=== PATIENT | male | born 1985 | race Caucasian/White ===

== ENCOUNTER 2018-01-25 23:44 | Inpatient (IN) | payer SELFPAY ==
[~2018-01-25] VITALS: Ht 175.3 cm; Wt 95.7 kg
[2018-01-25 23:47] VITALS: BP 182/80; PULSE 100; RESP 18; TEMP 98.7; O2SAT 94
[2018-01-26] VITALS (22 sets, daily range): BP systolic 109–210; BP diastolic 56–102; PULSE 58–115; RESP 13–24; TEMP 98–98.7; O2SAT 93–100
[2018-01-26 00:05] LABS: AUTOMATED NEUTROPHIL # 4.4 TH/MM3 (1.8-7.7); BASOPHIL # 0.1 TH/MM3 (0-0.2); BASOPHIL % 0.7 % (0.0-2.0); EOSINOPHIL # 0.7 TH/MM3 (0-0.4); EOSINOPHIL % 7.7 % (0.0-4.0); HEMATOCRIT 40.4 % (39.0-51.0); HEMOGLOBIN 13.6 GM/DL (13.0-17.0); LYMPH % 37.8 % (9.0-44.0); LYMPHOCYTE # 3.4 TH/MM3 (1.0-4.8); MEAN CELL VOLUME 94.2 FL (80.0-100.0); MEAN CORPUSCULAR HEMOGLOBIN 31.8 PG (27.0-34.0); MEAN CORPUSCULAR HGB CONC 33.8 % (32.0-36.0); MEAN PLATELET VOLUME 7.7 FL (7.0-11.0); MONOCYTE # 0.5 TH/MM3 (0-0.9); NEUT % 47.8 % (16.0-70.0); PLATELET COUNT 265 TH/MM3 (150-450); RED BLOOD COUNT 4.29 MIL/MM3 (4.50-5.90); RED CELL DISTRIBUTION WIDTH 14.3 % (11.6-17.2); WHITE BLOOD COUNT 9.1 TH/MM3 (4.0-11.0)
[2018-01-26] MEDS ORDERED: PROMETHAZINE INJ 25 MG/ML VIAL IM ONE (00:15)
[2018-01-26 00:29] LABS: ALBUMIN 3.7 GM/DL (3.4-5.0); ALT (GPT) 29 U/L (12-78); AST (GOT) 19 U/L (15-37); BICARBONATE 22.9 MEQ/L (21.0-32.0); BLOOD UREA NITROGEN 12 MG/DL (7-18); CALCIUM 7.8 MG/DL (8.5-10.1); CHLORIDE 109 MEQ/L (98-107); CREATININE 1.04 MG/DL (0.60-1.30); GLOMERULAR FILTRATION RATE 82 ML/MIN (>89); GLUCOSE,RANDOM 107 MG/DL (74-106); SODIUM (NA) 142 MEQ/L (136-145)
[2018-01-26 00:32] LABS: ALKALINE PHOSPHATASE 80 U/L (45-117); TOTAL BILIRUBIN ADULT 0.2 MG/DL (0.2-1.0); TOTAL PROTEIN 6.8 GM/DL (6.4-8.2)
[2018-01-26] MEDS ORDERED: LORazepam 2 MG/ML VIAL IV PUSH ONE (01:00)
--- NOTE | 2018-01-26 01:10 | RADRPT ---
EXAM DATE: 01/26/2018 12:50 AM EDT AGE/SEX: 32 years / Male INDICATIONS: Found on ground with laceration over right eye. CLINICAL DATA: This is the patient's initial encounter. Patient reports that signs and symptoms have been present for 1 day and indicates a pain score of Nonresponsive. MEDICAL/SURGICAL HISTORY: Non-responsive. Non-responsive. RADIATION DOSE: 56.35 CTDI (mGy) COMPARISON: No prior exams available for comparison. TECHNIQUE: CT of the head without contrast. Using automated exposure control and adjustment of the mA and/or kV according to patient size, radiation dose was kept as low as reasonably achievable to ob tain optimal diagnostic quality images. DICOM format image data is available electronically for revi ew and comparison. FINDINGS: Cerebrum: There is subarachnoid hemorrhage seen at the right frontal lobe. There is a small area kyle suring 1 cm which may be a more focal area of subarachnoid hemorrhage versus actual intracranial hemo rrhagic contusion in the right frontal lobe. The ventricles are normal for age. No evidence of midli ne shift, mass lesion, or acute infarction. Posterior Fossa: The cerebellum and brainstem are intac t. The 4th ventricle is midline. The cerebellopontine angle is unremarkable. Extracranial: Nasal bone fractures are present. There is fracturing of the lamina papyracea on the r ight. There is associated soft tissue swelling in the right periorbital region. There is air in the s oft tissues inferior to the left petrous temporal bone raising possibility of fracture in this region . The fracture is not clearly seen. There is fluid in the left middle ear. There is fluid seen throug hout the paranasal sinuses. The patient is to CT of the facial bones to follow. CONCLUSION: 1. Subarachnoid hemorrhage over the right frontal lobe. There may be a small hemorrhagic contusion m easuring 1 cm in the right frontal lobe. 2. Nasal bone fracture and right lamina papyracea fracture. The patient is to have a CT of the facia l bones. 3. Air seen inferior to the left petrous temporal bone raising possibility of fracture of the left p etrous temporal bone although fracture line is not clearly seen. Electronically signed by: Brent Logan MD 01/26/2018 1:09 AM EDT
[2018-01-26] MEDS ORDERED: HALOPERIDOL LACTATE 5 MG/ML AMP IM ONE (01:15)
--- NOTE | 2018-01-26 01:18 | RADRPT ---
EXAM DATE: 01/26/2018 1:10 AM EDT AGE/SEX: 32 years / Male INDICATIONS: Found on ground. Laceration over right eye. CLINICAL DATA: This is the patient's initial encounter. Patient reports that signs and symptoms have been present for 1 day and indicates a pain score of Nonresponsive. MEDICAL/SURGICAL HISTORY: Non-responsive. Non-responsive. RADIATION DOSE: 23.51 CTDI (mGy) COMPARISON: No prior exams available for comparison. TECHNIQUE: Contiguous images in the axial and coronal planes were obtained using helical multirow de tector technique. Using automated exposure control and adjustment of the mA and/or kV according to p atient size, radiation dose was kept as low as reasonably achievable to obtain optimal diagnostic jean-paul lity images. DICOM format image data is available electronically for review and comparison. FINDINGS: Orbits: There is fracturing of the right lamina papyracea. There is fracturing of the right orbital roof and inferior aspect of the right frontal sinus. There is right orbital emphysema. The left orbit is intact. Nasal Bone: There are multiple nasal bone fractures. Zygomatic Arches: Symmetric without evidence of fracture. Sinuses: There is fracturing through the right frontal sinus. There is fluid/hemorrhage seen in the right frontal, bilateral ethmoid, bilateral sphenoid and to a lesser degree bilateral maxillary sinus es. Nasal Cavity: The nasal septum is deviated to the right. The lacrimal ducts are intact. Soft Tissues: There is right periorbital soft tissue swelling and emphysema. There is soft tissue sw elling at the nose. There is emphysema seen inferior to the left petrous temporal bone and extending into the parapharyngeal space. There is fracturing of the inferior aspect of the petrous temporal bon e seen on the coronal images. There is fluid in the left middle ear. Intracranial: No intracranial air seen. Cribriform Plate: Grossly intact. CONCLUSION: 1. Right orbital fractures involving the superior and medial whittington. 2. Fracturing of the inferior aspect of the left petrous temporal bone with air extending into the l eft parapharyngeal space. 3. Fracturing through the right frontal sinus. 4. Nasal bone fractures. Electronically signed by: Brent Logan MD 01/26/2018 1:17 AM EDT
--- NOTE | 2018-01-26 01:38 | RADRPT ---
EXAM DATE: 01/26/2018 1:09 AM EDT AGE/SEX: 32 years / Male INDICATIONS: Found on ground with facial abrasions and lacerations. CLINICAL DATA: This is the patient's initial encounter. Patient reports that signs and symptoms have been present for 1 day and indicates a pain score of Nonresponsive. MEDICAL/SURGICAL HISTORY: Non-responsive. Non-responsive. RADIATION DOSE: 22.75 CTDI (mGy) ; Patient motion COMPARISON: No prior exams available for comparison. TECHNIQUE: Contiguous axial images were obtained using helical multirow detector technique. The vol umetric data was post-processed with multiplanar reconstruction in oblique axial, sagittal, and coron al planes. Using automated exposure control and adjustment of the mA and/or kV according to patient s ize, radiation dose was kept as low as reasonably achievable to obtain optimal diagnostic quality marko ges. DICOM format image data is available electronically for review and comparison. FINDINGS: Vertebrae: Normal vertebral body height. Alignment: Normal. No subluxation. Again noted is the emphysema in the left parapharyngeal space. Please see the CT of the facial report . C2-3: The bony spinal canal is normal in size. No evidence of disc bulge or herniation. The neural foramina are bilaterally patent. C3-4: The bony spinal canal is normal in size. No evidence of disc bulge or herniation. The neural foramina are bilaterally patent. C4-5: The bony spinal canal is normal in size. No evidence of disc bulge or herniation. The neural foramina are bilaterally patent. C5-6: The bony spinal canal is normal in size. No evidence of disc bulge or herniation. The neural foramina are bilaterally patent. C6-7: The bony spinal canal is normal in size. No evidence of disc bulge or herniation. The neural foramina are bilaterally patent. C7-T1: The bony spinal canal is normal in size. No evidence of disc bulge or herniation. The neura l foramina are bilaterally patent. CONCLUSION: Negative cervical spine CT examination. Electronically signed by: Brent Logan MD 01/26/2018 1:36 AM EDT
[2018-01-26] MEDS ORDERED: ETOMIDATE 40 MG/20 ML VIAL ONE (01:40)
[2018-01-26] MEDS ORDERED: PROPOFOL 1000 MG/100 ML INJ 100 ML IV PRN (01:45)
[2018-01-26] MEDS ORDERED: ETOMIDATE 20 MG/10 ML VIAL IVP ONE (01:45)
[2018-01-26] MEDS ORDERED: SUCCINYLCHOLINE CHLORIDE 200 MG/10 ML VIAL IV PUSH ONE (01:45)
[2018-01-26] MEDS ORDERED: fentaNYL DRIP 250 ML IV PRN (02:00)
[2018-01-26] MEDS ORDERED: HYDROmorphone HCL PF 2 MG/ML VIAL IVS ONE (02:00)
--- NOTE | 2018-01-26 02:32 | RADRPT ---
EXAM DATE: 01/26/2018 2:16 AM EDT AGE/SEX: 32 years / Male INDICATIONS: Intubation on a unresponsive patient. CLINICAL DATA: This is the patient's initial encounter. Patient reports that signs and symptoms have been present for 1 day and indicates a pain score of Nonresponsive. MEDICAL/SURGICAL HISTORY: Non-responsive. Non-responsive. COMPARISON: No prior exams available for comparison. FINDINGS: The ET tube tip is 5 cm from the skyler in good position. The NG tube tip is in the stomach. The hear t size is normal. There is increased density at the left base in the retrocardiac area. The right soumya g is grossly clear. CONCLUSION: ET tube and NG tube in good position. Mild left base atelectasis or consolidation. Electronically signed by: Brent Logan MD 01/26/2018 2:31 AM EDT
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
[2018-01-26] MEDS ORDERED: SODIUM CHLOR 0.9% 1000 ML INJ 1,000 ML IV SCH (07:00)
--- NOTE | 2018-01-26 07:29 | RADRPT ---
EXAM DATE: 01/26/2018 7:13 AM EDT AGE/SEX: 32 years / Male INDICATIONS: Follow up head injury, pupil change. CLINICAL DATA: This is the patient's subsequent encounter. Patient reports that signs and symptoms h ave been present for 2 days and indicates a pain score of Nonresponsive. MEDICAL/SURGICAL HISTORY: Non-responsive. Non-responsive. RADIATION DOSE: 56.35 CTDI (mGy) COMPARISON: [facility] [place], CT FACIAL BONES W/O CONTRAST, 01/26/2018. . TECHNIQUE: CT of the head without contrast. Using automated exposure control and adjustment of the mA and/or kV according to patient size, radiation dose was kept as low as reasonably achievable to ob tain optimal diagnostic quality images. DICOM format image data is available electronically for revi ew and comparison. FINDINGS: Redemonstration of subarachnoid hemorrhage overlying the cortices and right frontal mid convexities. There is also redemonstration of a focal small region of intraparenchymal hemorrhage in the right fro ntal lobe high convexities. There is slight asymmetry of the ventricles with smaller right ventricle consistent with some degree of right hemispheric edema. No significant subfalcine shift. No intravent ricular hemorrhage. No intercurrent hemorrhage. Basilar cisterns are maintained. Brainstem and cerebe llum are intact. Redemonstration facial bone and left petrous temporal bone with air extending to the left parapharyngeal space. Fluid is noted in the paranasal sinuses and left mastoid air cells. CONCLUSION: 1. Stable CT examination of the brain with persistent subarachnoid hemorrhage overlying the vertices and right frontal lobe and probable small hemorrhagic contusion in the left frontal high convexities . 2. Associated right hemispheric edema without subfalcine shift or transtentorial herniation. 3. Redemonstration of nasal bone and left petrous temporal bone fractures. Electronically signed by: Rk Peace MD 01/26/2018 7:27 AM EDT
[2018-01-26] MEDS: levETIRAcetam 500 MG/NS 100 ML IV SCH ×4 (09:00→21:15)
[2018-01-26] MEDS ORDERED: oxyCODONE/ACETAMINOPHEN 5 MG/325 MG TAB PO PRN (10:30)
[2018-01-26] MEDS ORDERED: oxyCODONE/ACETAMINOPHEN 7.5 MG/325 MG TAB PO PRN (10:30)
[2018-01-26] MEDS ORDERED: MORPHINE SULFATE 4 MG/ML INJ IV PUSH PRN (10:45)
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
--- NOTE | 2018-01-26 12:13 | HHI.CCPN ---
Subjective Brief History [place]: This is a 32-year-old male who was found on the side of the road , bleeding from his eye. He was intoxicated. EtOH 218. He required intubation in the ED in order to perform appropriate scans and assessments. INJURIES: LEFT temporal bone fx? SAH RIGHT frontal hemorrhagic contusion RIGHT orbital fx (Non-op) Nasal bone fx (non-op) PMHx: Hypospadias 24 Hour Review/Hospital Course 01/26/2018 Patient lightly sedated on mechanical ventilation. Plan for weaning sedation to off, and assessing the patient for extubation. If patient passes all parameters, patient will be extubated. Patient extubated to nasal cannula at 10:20 AM without incident. Objective Vital Signs Date Time Temp Pulse Resp B/P (MAP) Pulse Ox O2 Delivery O2 Flow Rate FiO2 01/26/18 11:00 58 13 123/67 (85) 97 01/26/18 10:21 Nasal Cannula 3.00 01/26/18 09:50 30 01/26/18 08:00 98.2 Intake and Output 01/26/18 01/26/18 01/27/18 08:00 16:00 00:00 Output Total 30 ml Balance -30 ml Result Diagram: 01/25/18 2353 01/25/18 8787 Other Results Laboratory Tests Test 01/26/18 02:25 Blood Gas Puncture Site RT FEMORAL Blood Gas Patient Temperature 98.6 Blood Gas HCO3 22 mmol/L (22-26) Blood Gas Base Excess -3.8 mmol/L (-2-2) Blood Gas Oxygen Saturation 93 % (90-100) Arterial Blood pH 7.30 (7.380-7.420) Arterial Blood Partial Pressure CO2 45 mmHg (38-42) Arterial Blood Partial Pressure O2 364 mmHG (61-120) Arterial Blood Oxygen Content 17.4 Vol % (12.0-20.0) Arterial Blood Carboxyhemoglobin 6.0 % (0-4) Arterial Blood Methemoglobin 0.9 % (0-2) Blood Gas Hemoglobin 12.6 G/DL (12.0-16.0) Oxygen Delivery Device VENTILATOR Blood Gas Ventilator Setting Blood Gas Inspired Oxygen 100 % Imaging Last 24 hours Impressions Chest X-Ray 01/26/18 0135 Signed Impressions: CONCLUSION: ET tube and NG tube in good position. Mild left base atelectasis or consolidation. Maxillofacial CT 01/26/18 Signed Impressions: CONCLUSION: 1. Right orbital fractures involving the superior and medial whittington. 2. Fracturing of the inferior aspect of the left petrous temporal bone with ai r extending into the left parapharyngeal space. 3. Fracturing through the right frontal sinus. 4. Nasal bone fractures. Head CT 01/26/18 Signed Impressions: CONCLUSION: 1. Stable CT examination of the brain with persistent subarachnoid hemorrhage overlying the vertices and right frontal lobe and probable small hemorrhagic co ntusion in the left frontal high convexities. 2. Associated right hemispheric edema without subfalcine shift or transtentori al herniation. 3. Redemonstration of nasal bone and left petrous temporal bone fractures. Head CT 01/26/18 Signed Impressions: CONCLUSION: 1. Subarachnoid hemorrhage over the right frontal lobe. There may be a small h emorrhagic contusion measuring 1 cm in the right frontal lobe. 2. Nasal bone fracture and right lamina papyracea fracture. The patient is to have a CT of the facial bones. 3. Air seen inferior to the left petrous temporal bone raising possibility of fracture of the left petrous temporal bone although fracture line is not clearl y seen. Cervical Spine CT 01/26/18 Signed Impressions: CONCLUSION: Negative cervical spine CT examination. Objective Remarks GENERAL: This is a 32-year-old male, sedated and mechanically ventilated in bed. SKIN: Warm and dry. HEAD: Atraumatic. Normocephalic. EYES: Right eye/orbit with ecchymosis and swelling. ENT: No nasal bleeding or discharge. Mucous membranes pink and moist. NECK: Trachea midline. No JVD. CARDIOVASCULAR: Regular rate and rhythm. RESPIRATORY: No accessory muscle use. Lungs are clear to auscultation. Breath sounds equal bilaterally. No distress or dyspnea. GASTROINTESTINAL: BS + x 4 quads. Abdomen soft, non-tender, nondistended. MUSCULOSKELETAL: Extremities without cyanosis, or edema. + peripheral pulses x 4 extremities. Warm with good capillary refill and sensation. MAEW. NEUROLOGICAL: Lightly sedated and mechanically ventilated. Sedation being weaned and slowly arousing and moving all 4 extremities to command. Urinary Catheter Assessment Urinary Catheter: Yes Assessment to: Continue Vascular Central Line Catheter Vascular Central Line Catheter: No Assessment and Plan Assessment: (1) Intracranial hemorrhage ICD Code: I62.9 - Nontraumatic intracranial hemorrhage, unspecified Status: Acute (2) Facial bones, closed fracture ICD Code: S02.92XA - Unspecified fracture of facial bones, initial encounter for closed fracture Status: Acute (3) Eyelid laceration ICD Code: S01.119A - Laceration without foreign body of unspecified eyelid and periocular area, initial encounter Status: Acute Plan [place]: This is a 32-year-old male who was found on the side of the road , bleeding from his eye. He was intoxicated. EtOH 218. INJURIES: LEFT temporal bone fx? SAH RIGHT frontal hemorrhagic contusion RIGHT orbital fx (Non-op) Nasal bone fx (non-op) PMHx: Hypospadias Procedures: 01/25: Intubated in the ED 01/26: Extubated Consults: Neurosurgery. OMFS. Ophthalmology. Neuropsych. Urology. Case management. Diet: Nursing bedside swallow evaluation. Diet progression post extubation as tolerated. Encourage good po intake with each meal. Pulmonary: Mechanically ventilated. Passed respiratory parameters, and successfully extubated to nasal cannula. Encourage good pulmonary toileting. IS at bedside and pt encouraged to use. Rationale for use explained to patient, and verbalized understanding. PAIN Management: Weaning and eventual DC of propofol and fentanyl. Transition to Percocet 5-7.5 mg q 4 and Morphine 2 mg q 3h for breakthrough pain post extubation Activity: OOB. Pt and OT ordered. GI prophylaxis: Pepcid 20 mg BID po Bowel regimen: Karolyn-colace. MOM. LBM: o DVT prophylaxis: Mechanical VTE with SCDs. Chemical management TBD. DC Planning: Case management consulted for assistance with final discharge disposition. Emotional support provided to patient and family at bedside and plan of care discussed. Discussed with RN at bedside. Discussed pt condition and plan of care with collaborating trauma surgeon. Patient is hemodynamically stable and being managed on the med/surg floor. The trauma team will round each day, and evaluate plan of care on a daily basis. LEFT temporal bone fx? SAH RIGHT frontal hemorrhagic contusion Neurosurgery consulted and assisting in management care Nonoperative management at this time Prevent secondary head injury Supportive care CT brain for any change in neurological status Pain management PT and OT ordered Encourage out of bed Seizure precautions Seizure prophylaxis with Keppra IV RIGHT orbital fx (Non-op) Nasal bone fx (non-op) OMFS consulted and assisting in management care Nonoperative management at this time Supportive care Pain management PT and OT ordered Encourage out of bed Awaiting ophthalmology assessment and plan Problem Qualifiers (1) Facial bones, closed fracture: Qualified Codes: S02.31XA - Fracture of orbital floor, right side, initial encounter for closed fracture (2) Eyelid laceration: Qualified Codes: S01.111A - Laceration without foreign body of right eyelid and periocular area, initial encounter Radha Baker Jan 26, 2018 12:13
--- NOTE | 2018-01-26 13:19 | PD.CONS ---
History of Present Illness Service Ophthalmology Consult Requested By Reason for Consult right upper eyelid laceration Primary Care Physician No Primary Care Physician Diagnoses: History of Present Illness 32 yo M presented to ED yesterday after he was found down next to the road with bleeding from his right eye. He appeared intoxicated. CT head showed subarachnoid hemorrhage over the right frontal lobe. Maxillofacial CT: Right orbital fracture involving the superior medial wall. Fracturing of the inferior aspect of the left petrous temporal bone with air extending into the left parapharyngeal space. Fracturing through the right frontal sinus. Nasal bone fractures. Also has a right upper eyelid laceration extending into the medial canthus. Pt was initially intubated due to being combative and belligerent. He was extubated this morning. Currently not responding to any questions or commands, and not cooperative with the exam. 2 brothers at bedside state he does not have any significant ocular history. Past Family Social History Allergies: Coded Allergies: No Known Allergies (Unverified , 01/25/18) Physical Exam Vital Signs Vital Signs Date Time Temp Pulse Resp B/P (MAP) Pulse Ox O2 Delivery O2 Flow Rate FiO2 01/26/18 11:00 58 13 123/67 (85) 97 01/26/18 10:21 100 Nasal Cannula 3.00 01/26/18 10:00 64 01/26/18 09:50 Nasal Cannula 30 01/26/18 09:47 100 30 01/26/18 08:00 50 01/26/18 08:00 65 01/26/18 08:00 98.2 65 14 109/58 (75) 100 01/26/18 07:00 100 Mechanical Ventilator 50 01/26/18 06:00 73 01/26/18 05:00 73 01/26/18 05:00 100 Mechanical Ventilator 50 01/26/18 05:00 50 01/26/18 04:50 100 100 01/26/18 04:30 79 14 146/62 (90) 100 Ventilator 100 01/26/18 04:30 98 50 01/26/18 03:30 89 14 137/63 (87) 100 Ventilator 01/26/18 03:07 92 14 125/57 (79) 99 Ventilator 01/26/18 02:23 96 14 124/57 (79) 99 Ventilator 01/26/18 02:06 99 14 133/63 (86) 99 Ventilator 01/26/18 02:00 100 01/26/18 01:53 100 100 01/26/18 01:52 115 16 210/102 (138) 96 Ventilator 01/26/18 01:16 101 24 175/98 (123) 93 Room Air 01/25/18 23:47 98.7 100 18 182/80 (114) 94 Physical Exam Va unable EOM full OU CVF unable Pupils 2-1 no APD OU IOP normal to palpation OU Anterior exam OD - upper eyelid laceration - 3cm extending into medial canthus, C/S W&Q, K clear, AC deep, pupil round, lens clear OS - normal eyelid, C/S W&Q, K clear, AC deep, pupil round, lens clear Laboratory Laboratory Tests Test 01/25/18 23:55 01/26/18 02:25 White Blood Count 9.1 Red Blood Count 4.29 Hemoglobin 13.6 Hematocrit 40.4 Mean Corpuscular Volume 94.2 Mean Corpuscular Hemoglobin 31.8 Mean Corpuscular Hemoglobin Concent 33.8 Red Cell Distribution Width 14.3 Platelet Count 265 Mean Platelet Volume 7.7 Neutrophils (%) (Auto) 47.8 Lymphocytes (%) (Auto) 37.8 Monocytes (%) (Auto) 6.0 Eosinophils (%) (Auto) 7.7 Basophils (%) (Auto) 0.7 Neutrophils # (Auto) 4.4 Lymphocytes # (Auto) 3.4 Monocytes # (Auto) 0.5 Eosinophils # (Auto) 0.7 Basophils # (Auto) 0.1 CBC Comment DIFF FINAL Differential Comment Blood Urea Nitrogen 12 Creatinine 1.04 Random Glucose 107 Total Protein 6.8 Albumin 3.7 Calcium Level 7.8 Alkaline Phosphatase 80 Aspartate Amino Transf (AST/SGOT) 19 Alanine Aminotransferase (ALT/SGPT) 29 Total Bilirubin 0.2 Sodium Level 142 Potassium Level 3.5 Chloride Level 109 Carbon Dioxide Level 22.9 Anion Gap 10 Estimat Glomerular Filtration Rate 82 Ethyl Alcohol Level 218 Blood Gas Puncture Site RT FEMORAL Blood Gas Patient Temperature 98.6 Blood Gas HCO3 22 Blood Gas Base Excess -3.8 Blood Gas Oxygen Saturation 93 Arterial Blood pH 7.30 Arterial Blood Partial Pressure CO2 45 Arterial Blood Partial Pressure O2 364 Arterial Blood Oxygen Content 17.4 Arterial Blood Carboxyhemoglobin 6.0 Arterial Blood Methemoglobin 0.9 Blood Gas Hemoglobin 12.6 Oxygen Delivery Device VENTILATOR Blood Gas Ventilator Setting Blood Gas Inspired Oxygen 100 Result Diagram: 01/25/18235401/25/182354 Assessment and Plan Problem List: (1) Right eyelid laceration ICD Codes: S01.111A - Laceration without foreign body of right eyelid and periocular area, initial encounter Status: Acute Plan: Pt not cooperative at bedside - will plan for repair in OR tomorrow at 2: 30 pm. NPO after midnight tonight. Consent for repair of right upper eyelid laceration. Start erythromycin ointment to right eyelid BID. Problem Qualifiers (1) Right eyelid laceration: Qualified Codes: S01.111A - Laceration without foreign body of right eyelid and periocular area, initial encounter Pattie Hayes MD Jan 26, 2018 13:19
--- NOTE | 2018-01-26 15:01 | PD.CONS ---
HPI Service Urology Consult Requested By Dr Hayes Reason for Consult Hypospadia, Evaluate for necessity of amezcua placement Primary Care Physician No Primary Care Physician Diagnosis: History of Present Illness 32 yo M presented to ED yesterday after he was found down next to the road with bleeding from his right eye. He appeared intoxicated. CT head showed subarachnoid hemorrhage over the right frontal lobe. Maxillofacial CT: Right orbital fracture involving the superior medial wall. Fracturing of the inferior aspect of the left petrous temporal bone with air extending into the left parapharyngeal space. Fracturing through the right frontal sinus. Nasal bone fractures. Also has a right upper eyelid laceration extending into the medial canthus. Pt was initially intubated due to being combative and belligerent. He was extubated this morning. Currently not responding to any questions or commands, and not cooperative with the exam. 2 brothers at bedside state he does not have any significant ocular history. Urology consulted for possible necessity of amezcua placement. At the time of evaluation pt was already extubated. he is bad historian, but states that voids ok, no hematuria and no difficulties Review of Systems Except as stated in HPI: all other systems reviewed are Neg Past Family Social History Past Medical History cant obtain Past Surgical History n/a Allergies: Coded Allergies: No Known Allergies (Unverified , 01/25/18) Family History n/a Social History n/a Physical Exam Vital Signs Date Time Temp Pulse Resp B/P (MAP) Pulse Ox O2 Delivery O2 Flow Rate FiO2 01/26/18 14:00 69 01/26/18 12:00 98.0 64 15 150/78 (102) 98 01/26/18 12:00 65 01/26/18 11:00 58 13 123/67 (85) 97 01/26/18 10:21 100 Nasal Cannula 3.00 01/26/18 10:00 64 01/26/18 09:50 Nasal Cannula 30 01/26/18 09:47 100 30 01/26/18 08:00 50 01/26/18 08:00 65 01/26/18 08:00 98.2 65 14 109/58 (75) 100 01/26/18 07:00 100 Mechanical Ventilator 50 01/26/18 06:00 73 01/26/18 05:00 73 01/26/18 05:00 100 Mechanical Ventilator 50 01/26/18 05:00 50 01/26/18 04:50 100 100 01/26/18 04:30 79 14 146/62 (90) 100 Ventilator 100 01/26/18 04:30 98 50 01/26/18 03:30 89 14 137/63 (87) 100 Ventilator 01/26/18 03:07 92 14 125/57 (79) 99 Ventilator 01/26/18 02:23 96 14 124/57 (79) 99 Ventilator 01/26/18 02:06 99 14 133/63 (86) 99 Ventilator 01/26/18 02:00 100 01/26/18 01:53 100 100 01/26/18 01:52 115 16 210/102 (138) 96 Ventilator 01/26/18 01:16 101 24 175/98 (123) 93 Room Air 01/25/18 23:47 98.7 100 18 182/80 (114) 94 Physical Exam GENERAL: This is a well-nourished, well-developed patient, in no apparent distress. HEAD: Atraumatic. Normocephalic. . EYES: Rt eye patch. Right eye/orbit with ecchymosis and swelling. CARDIOVASCULAR: Regular rate and rhythm without murmurs, gallops, or rubs. RESPIRATORY: Clear to auscultation. Breath sounds equal bilaterally. No wheezes , rales, or rhonchi. GASTROINTESTINAL: Abdomen soft, non-tender, nondistended. GENITOURINARY:Hypospadia, no bladder distention MUSCULOSKELETAL: Extremities without clubbing, cyanosis, or edema.. NEUROLOGICAL: Awake and alert. . Lab results reviewed: Yes Laboratory Tests Test 01/25/18 23:55 01/26/18 02:25 White Blood Count 9.1 Red Blood Count 4.29 Hemoglobin 13.6 Hematocrit 40.4 Mean Corpuscular Volume 94.2 Mean Corpuscular Hemoglobin 31.8 Mean Corpuscular Hemoglobin Concent 33.8 Red Cell Distribution Width 14.3 Platelet Count 265 Mean Platelet Volume 7.7 Neutrophils (%) (Auto) 47.8 Lymphocytes (%) (Auto) 37.8 Monocytes (%) (Auto) 6.0 Eosinophils (%) (Auto) 7.7 Basophils (%) (Auto) 0.7 Neutrophils # (Auto) 4.4 Lymphocytes # (Auto) 3.4 Monocytes # (Auto) 0.5 Eosinophils # (Auto) 0.7 Basophils # (Auto) 0.1 CBC Comment DIFF FINAL Differential Comment Blood Urea Nitrogen 12 Creatinine 1.04 Random Glucose 107 Total Protein 6.8 Albumin 3.7 Calcium Level 7.8 Alkaline Phosphatase 80 Aspartate Amino Transf (AST/SGOT) 19 Alanine Aminotransferase (ALT/SGPT) 29 Total Bilirubin 0.2 Sodium Level 142 Potassium Level 3.5 Chloride Level 109 Carbon Dioxide Level 22.9 Anion Gap 10 Estimat Glomerular Filtration Rate 82 Ethyl Alcohol Level 218 Blood Gas Puncture Site RT FEMORAL Blood Gas Patient Temperature 98.6 Blood Gas HCO3 22 Blood Gas Base Excess -3.8 Blood Gas Oxygen Saturation 93 Arterial Blood pH 7.30 Arterial Blood Partial Pressure CO2 45 Arterial Blood Partial Pressure O2 364 Arterial Blood Oxygen Content 17.4 Arterial Blood Carboxyhemoglobin 6.0 Arterial Blood Methemoglobin 0.9 Blood Gas Hemoglobin 12.6 Oxygen Delivery Device VENTILATOR Blood Gas Ventilator Setting Blood Gas Inspired Oxygen 100 Result Diagram: 01/25/185 01/25/182354 Personally reviewed images: Yes Imaging Last Impressions Chest X-Ray 01/26/18 0135 Signed Impressions: CONCLUSION: ET tube and NG tube in good position. Mild left base atelectasis or consolidation. Maxillofacial CT 01/26/18 0000 Signed Impressions: CONCLUSION: 1. Right orbital fractures involving the superior and medial whittington. 2. Fracturing of the inferior aspect of the left petrous temporal bone with ai r extending into the left parapharyngeal space. 3. Fracturing through the right frontal sinus. 4. Nasal bone fractures. Head CT 01/26/18 0000 Signed Impressions: CONCLUSION: 1. Stable CT examination of the brain with persistent subarachnoid hemorrhage overlying the vertices and right frontal lobe and probable small hemorrhagic co ntusion in the left frontal high convexities. 2. Associated right hemispheric edema without subfalcine shift or transtentori al herniation. 3. Redemonstration of nasal bone and left petrous temporal bone fractures. Cervical Spine CT 01/26/18 0000 Signed Impressions: CONCLUSION: Negative cervical spine CT examination. Assessment and Plan Assessment and Plan No acute intervention needed Continue monitoring I&O Continue care as per primary team Bladder scan prn after voiding to evaluate for retention, if retains more then 250cc after voiding insert amezcua catheter and start flomax Urology remains available as needed. Discussed Condition With Dr Burak PEREIRA attending who agrees with this plan Alfa Parker Jan 26, 2018 15:01
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
[2018-01-26] MEDS: MAGNESIUM HYDROXIDE SUSP 30 ML CUP PO SCH (21:00)
[2018-01-26] MEDS: ERYTHROMYCIN 0.5% OPTH OINT 3.5 GM TUBO RIGHT EYE SCH (21:15)
[2018-01-26] MEDS: DOCUSATE SODIUM 50 MG/SENNA 8.6 MG TAB PO SCH (21:15)
[2018-01-26] MEDS: FAMOTIDINE 20 MG TAB PO SCH (21:16)
--- NOTE | 2018-01-26 22:58 | EKG ---
Date Performed: 01/26/2018 Time Performed: 02:08:53 PTAGE: 32 years EKG: SINUS TACHYCARDIA NONSPECIFIC T-WAVE ABNORMALITY ABNORMAL RHYTHM ECG NO PREVIOUS TRACING DOCTOR: Andrew Branch Interpretating Date/Time 01/26/2018 22:57:43
[2018-01-27] VITALS (10 sets, daily range): BP systolic 111–144; BP diastolic 53–87; PULSE 56–78; RESP 12–21; TEMP 98–99; O2SAT 92–99
[2018-01-27 05:09] LABS: AUTOMATED NEUTROPHIL # 7.2 TH/MM3 (1.8-7.7); BASOPHIL # 0.1 TH/MM3 (0-0.2); BASOPHIL % 0.6 % (0.0-2.0); EOSINOPHIL # 0.1 TH/MM3 (0-0.4); EOSINOPHIL % 1.5 % (0.0-4.0); HEMATOCRIT 41.2 % (39.0-51.0); HEMOGLOBIN 13.9 GM/DL (13.0-17.0); LYMPH % 14.7 % (9.0-44.0); LYMPHOCYTE # 1.4 TH/MM3 (1.0-4.8); MEAN CELL VOLUME 93.5 FL (80.0-100.0); MEAN CORPUSCULAR HEMOGLOBIN 31.7 PG (27.0-34.0); MEAN CORPUSCULAR HGB CONC 33.9 % (32.0-36.0); MEAN PLATELET VOLUME 7.9 FL (7.0-11.0); MONO % 7.5 % (0.0-8.0); MONOCYTE # 0.7 TH/MM3 (0-0.9); NEUT % 75.7 % (16.0-70.0); PLATELET COUNT 216 TH/MM3 (150-450); RED CELL DISTRIBUTION WIDTH 14.2 % (11.6-17.2); WHITE BLOOD COUNT 9.6 TH/MM3 (4.0-11.0)
[2018-01-27 05:34] LABS: BICARBONATE 23.4 MEQ/L (21.0-32.0); CALCIUM 8.3 MG/DL (8.5-10.1); CREATININE 0.8 MG/DL (0.60-1.30)
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
[2018-01-27] MEDS: ERYTHROMYCIN 0.5% OPTH OINT 3.5 GM TUBO RIGHT EYE SCH ×2 (08:53→23:50)
[2018-01-27] MEDS: levETIRAcetam 500 MG/NS 100 ML IV SCH ×2 (08:53)
[2018-01-27] MEDS: FAMOTIDINE 20 MG TAB PO SCH ×2 (08:53→23:52)
[2018-01-27] MEDS: DOCUSATE SODIUM 50 MG/SENNA 8.6 MG TAB PO SCH ×2 (08:53→23:49)
[2018-01-27] MEDS: MAGNESIUM HYDROXIDE SUSP 30 ML CUP PO SCH ×2 (08:53→21:00)
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
[2018-01-27] MEDS ORDERED: PROPOFOL 200 MG/20 ML AMP IV ONE (12:00)
[2018-01-27] MEDS ORDERED: LIDOCAINE HCL 1% PF 5 ML SYRINGE OTHER ONE (12:00)
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
--- NOTE | 2018-01-27 13:31 | HHI.PR ---
Subjective Remarks Pt is still very lethargic and uncooperative with answering questions or exam. Objective Vital Signs Date Time Temp Pulse Resp B/P (MAP) Pulse Ox O2 Delivery O2 Flow Rate FiO2 01/27/18 12:00 98.4 56 16 144/64 (90) 92 01/27/18 10:00 71 01/27/18 08:00 98.0 56 13 129/73 (91) 95 01/27/18 08:00 56 01/27/18 07:00 99 Room Air 01/27/18 06:00 63 01/27/18 04:00 57 01/27/18 04:00 98.7 56 16 111/53 (72) 97 01/27/18 02:00 58 01/27/18 01:22 16 01/27/18 00:00 68 01/27/18 00:00 99.0 67 12 117/87 (97) 98 01/26/18 22:00 67 01/26/18 20:00 98.5 62 22 125/56 (79) 98 01/26/18 20:00 62 01/26/18 19:00 97 Room Air 01/26/18 18:00 64 01/26/18 16:00 60 01/26/18 16:00 98.7 63 15 139/79 (99) 96 01/26/18 14:00 69 I/O 01/26/18 01/26/18 01/26/18 01/27/18 01/27/18 01/27/18 06:59 14:59 22:59 06:59 14:59 22:59 Intake Total 0 ml 345 ml 360 ml 105 ml Output Total 30 ml Balance -30 ml 0 ml 345 ml 360 ml 105 ml Intake Oral 0 ml 240 ml 360 ml IV Total 105 ml 105 ml Output Urine Total 30 ml # Voids 3 2 # Bowel Movements 0 Result Diagram: 01/27/1845601/27/18456 Objective Remarks Va unable EOM full OU CVF unable Pupils 2-1 no APD OU IOP normal to palpation OU Anterior exam OD - upper eyelid laceration - 3cm extending into medial canthus, C/S W&Q, K clear, AC deep, pupil round, lens clear OS - normal eyelid, C/S W&Q, K clear, AC deep, pupil round, lens clear Assessment and Plan Problem List: (1) Right eyelid laceration ICD Codes: S01.111A - Laceration without foreign body of right eyelid and periocular area, initial encounter Status: Acute Plan: Pt still not cooperative at bedside - will plan for repair in OR today at 2:30 pm. Consent signed. Ok to discharge after OR. Erythromycin ointment to right eyelid BID. Follow up as outpatient in 1 week. Problem Qualifiers (1) Right eyelid laceration: Qualified Codes: S01.111A - Laceration without foreign body of right eyelid and periocular area, initial encounter Pattie Hayes MD Jan 27, 2018 13:31
[2018-01-27] MEDS ORDERED: DIMETHICONE/OXYBENZONE/PADMIATE LIP BALM 4.25 GM TOPICAL ONE ×2 (14:13→17:15)
[2018-01-27] MEDS ORDERED: TOBRAMYCIN/DEXAMETHASONE OPTH OINT 3.5 GM TUBE ONE (15:15)
--- NOTE | 2018-01-27 15:31 | PD.OP ---
Operative Report Date of Surgery: Jan 27, 2018 Preoperative Diagnosis: (1) Right eyelid laceration Postoperative Diagnosis: (1) Right eyelid laceration Procedure: repair of right upper eyelid laceration Anesthesia: General Surgeon: Pattie Hayes Nitroglycerin Supervisor(s): none Operation and Findings: The patient was consented for surgery and taken back to the operating room. He was put under general anesthesia and prepped and draped in a sterile fashion. 6- 0 chromic gut sutures were placed to close the 3 cm laceration on the right upper eyelid. TobraDex ointment was placed on the right upper eyelid. The patient tolerated the procedure well and was sent to PACU in stable condition. Pattie Hayes MD Jan 27, 2018 15:31
[2018-01-27] MEDS ORDERED: DO NOT ADM ANY ANTICOAGULANT DRUGS PRN (15:33)
[2018-01-27] MEDS ORDERED: *RESP: ALBUTEROL 2.5 MG/3 ML NEB (PRN) PERIprocedural Use ONLY NEB ONE (16:04)
[2018-01-27] MEDS: levETIRAcetam 500 MG TAB PO SCH (23:52)
[2018-01-28] VITALS: BP 137/65; PULSE 58; RESP 20; TEMP 98.7; O2SAT 97
[2018-01-28 04:00] VITALS: BP 141/78; PULSE 58; RESP 20; TEMP 98; O2SAT 99
[2018-01-28 05:14] LABS: BASOPHIL % 0.4 % (0.0-2.0); EOSINOPHIL # 0.1 TH/MM3 (0-0.4); EOSINOPHIL % 1.4 % (0.0-4.0); HEMOGLOBIN 14.2 GM/DL (13.0-17.0); LYMPH % 13.4 % (9.0-44.0); LYMPHOCYTE # 1.2 TH/MM3 (1.0-4.8); MEAN CORPUSCULAR HEMOGLOBIN 31.9 PG (27.0-34.0); MEAN CORPUSCULAR HGB CONC 33.9 % (32.0-36.0); MONO % 8.2 % (0.0-8.0); MONOCYTE # 0.7 TH/MM3 (0-0.9); NEUT % 76.6 % (16.0-70.0); PLATELET COUNT 219 TH/MM3 (150-450); RED BLOOD COUNT 4.47 MIL/MM3 (4.50-5.90); RED CELL DISTRIBUTION WIDTH 13.7 % (11.6-17.2); WHITE BLOOD COUNT 9.1 TH/MM3 (4.0-11.0)
[2018-01-28 05:18] LABS: BICARBONATE 22.4 MEQ/L (21.0-32.0); CALCIUM 8.7 MG/DL (8.5-10.1); CREATININE 0.88 MG/DL (0.60-1.30)
[2018-01-28] MEDS ORDERED: WALKER WHEELS/F1 MIS (06:44)
[2018-01-28 08:00] VITALS: BP 124/71; PULSE 57; RESP 18; TEMP 98.2; O2SAT 98
[2018-01-28] MEDS: levETIRAcetam 500 MG TAB PO SCH (08:03)
[2018-01-28] MEDS: MAGNESIUM HYDROXIDE SUSP 30 ML CUP PO SCH (08:03)
[2018-01-28] MEDS: DOCUSATE SODIUM 50 MG/SENNA 8.6 MG TAB PO SCH (08:03)
[2018-01-28] MEDS: FAMOTIDINE 20 MG TAB PO SCH (08:03)
[2018-01-28] MEDS: ERYTHROMYCIN 0.5% OPTH OINT 3.5 GM TUBO RIGHT EYE SCH (08:04)
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
[2018-01-28] MEDS ORDERED: TYLE325T PO (11:41)
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
== END 2018-01-28 14:02 | disposition home or self-care (01) | DRG 84 ==
LOC: NEPE 23:44 → NEDA 01-26 01:43 → N03B 01-26 04:49 → N05B 01-27 17:04
PROVIDERS: ADMIT Surgery; ATTEND Surgery
PROC: 0BH17EZ Insertion of Endotracheal Airway into Trachea, Via Natural or Artificial Opening (ICD-10-PCS; principal; 2018-01-26)
PROC: 5A1935Z Respiratory Ventilation, Less than 24 Consecutive Hours (ICD-10-PCS; 2018-01-26)
PROC: 08QNXZZ Repair Right Upper Eyelid, External Approach (ICD-10-PCS; 2018-01-27)
DX: S06.6X9A Traumatic subarachnoid hemorrhage with loss of consciousness of unspecified duration, initial encounter (principal); S01.111A Laceration without foreign body of right eyelid and periocular area, initial encounter; S02.2XXA Fracture of nasal bones, initial encounter for closed fracture; F10.229 Alcohol dependence with intoxication, unspecified; S02.31XA Fracture of orbital floor, right side, initial encounter for closed fracture; S06.1X9A Traumatic cerebral edema with loss of consciousness of unspecified duration, initial encounter; Q54.9 Hypospadias, unspecified; S02.19XA Other fracture of base of skull, initial encounter for closed fracture; W19.XXXA Unspecified fall, initial encounter; Y90.7 Blood alcohol level of 200-239 mg/100 ml; Z72.0 Tobacco use
CPT/HCPCS: 31500; 36600; 70450; 70486; 71045; 72125; 80048; 80053; 80307; 82805; 85025; 93005; 94002; 94150; 94664; 94667; 96372; 96374; J0330; J1170; J1630; J1953; J2060; J2550; J3010; J7030; J7613

== ENCOUNTER 2018-01-31 23:44 | Observation (INO) ==
[2018-02-01 12:33] LABS: Carbon Dioxide 24.3 meq/L (21.0-32.0)
[2018-02-01 12:34] LABS: Calcium 8.9 mg/dL (8.5-10.1)
[2018-02-01] MEDS ORDERED: Sodium Chloride 23.4% Inj 188 MEQ in Sod Chloride 0.9% Inj 1,000 ML IV.CONT SCH (15:00)
--- NOTE | 2018-02-01 17:12 | P.PNNS ---
Subjective Interval history: He feels somewhat better today, some persistent headache but improved compared to last evening. No complaint of blurred vision diplopia nausea vomiting confusion speech difficulty. No neck or low back pain. No pain weakness numbness in the extremities. Physical Exam Vital signs: Vital Signs 02/01/18 02:12 02/01/18 04:24 02/01/18 08:00 Temperature 98.1 F 97.6 F 97.9 F Pulse Rate 47 L 50 L 51 L Respiratory Rate 16 18 16 Blood Pressure 110/56 L 115/65 117/64 Pulse Oximetry 100 95 02/01/18 12:00 Temperature 98.3 F Pulse Rate 77 Respiratory Rate 12 Blood Pressure 126/76 Pulse Oximetry 98 Intake & Output 01/31/18 02/01/18 02/01/18 18:59 06:59 18:59 Intake Total 591 / 591 Balance 591 / 591 Weight 95 kg Intake: Oral 591 / 591 Other: Date of Last Bowel Movement 01/31/18 Weight On Admission 95 kg Narrative: General: No apparent distress. His friends are visiting with him in the room. Respirations: Clear and regular Abdomen soft nontender Cardiac: Pulse regular Extremities: Multiple small abrasions, maculopapular type rash and small lesions over the upper extremities. HEENT: Mild periorbital edema and ecchymosis. No CSF otorrhea or rhinorrhea. Oropharynx clear. Poor dentition. Neck: No edema. Nontender. No nuchal rigidity. No cervical lymphadenopathy. Neurologic: Oriented X 3 Speech is clear Conversant and appropriate Follow simple commands well Answers questions appropriately Reasonable judgment and insight Recent and remote memory are intact No evidence of anxiety or depression Pupils are equal and reactive to accommodation. Extra-ocular movements, visual da silva to confrontation, facial sensorimotor, tongue, palate, sternocleidomastoid testing, hearing to finger rub testing, and bilateral shoulder shrug are all intact. Sensation is intact to light touch in all extremities Strength normal major flexion and extension groups all extremities Abeba's absent bilaterally No ankle clonus Plantar responses absent bilateral Fine motor movements intact upper extremities Assessment and Plan - Assessment (1) Brain injury Code(s): S06.9X9A - Unspecified intracranial injury with loss of consciousness of unspecified duration, initial encounter Status: Acute Qualifiers: Encounter type: subsequent encounter - Plan Impression: 1. Recent traumatic brain injury. Persistent cerebral edema. Increase headache last couple of days, possibly precipitated by increased stress and heat with strenuous work yesterday. Sodium on low normal range on admission. No evidence of seizure activity. Plan: Findings were discussed with the patient. He is feeling better today. He would like to go home. He is going to take salt tablets lower you some additional salt on his food over the next few days. Avoid heat and excessive work activity for the next couple weeks. No NSAIDs or aspirin. He is given however a few Toradol for flareups of headache, which worked well for him last evening. He does have a history of migraine headache. Signs and symptoms to watch for fully discussed. Activity precautions discussed. He will return to the emergency room if any significant changes occur. Follow-up with Dr. Landis as needed for other nonemergent sequela of his traumatic brain injury. Progress Note: Quality - VTE Deep Vein Thrombosis/Pulmonary Embolism Present on Admission: No
== END 2018-02-01 19:09 | disposition home or self-care (01) ==
LOC: UNDODISOB → NEPGCP 23:44 → NEDA 23:44 → NEPGCP 02-01 00:39
PROVIDERS: ADMIT Neurological Surgery; ATTEND Neurological Surgery